=== PATIENT | female | born 1965 | race Caucasian/White ===

== ENCOUNTER 2023-06-01 14:05 | Inpatient (IN) ==
[2023-06-01 15:31] LABS: Basophils # (auto) 0.05 K/uL (0.00-0.20); Basophils % (auto) 0.7 %; Eosinophils # (auto) 0.21 K/uL (0.00-0.50); Eosinophils % (auto) 2.8 %; Hematocrit (blood only) 36.1 % (37.0-47.0); Hemoglobin 12.8 g/dl (12.0-16.0); Immature Granulocytes # (auto) 0.06 K/uL (0.01-0.20); Immature Granulocytes % (auto) 0.8 %; Lymphocytes # (auto) 1.91 K/uL (1.20-3.40); Lymphocytes % (auto) 25.2 %; Mean Corpuscular Hemoglobin 30.1 pg (25.0-34.0); Mean Corpuscular Hgb Conc 35.5 g/dL (32.0-36.0); Mean Corpuscular Volume 84.9 fL (80.0-100.0); Mean Platelet Volume 9.8 fL (9.4-12.4); Monocytes # (auto) 0.47 K/uL (0.11-0.59); Monocytes % (auto) 6.2 %; Neutrophils # (auto) 4.88 K/uL (1.40-6.50); Neutrophils % (auto) 64.3 %; Platelet Count 310 K/uL (130-400); RDW Coefficient of Variation 13.6 % (11.5-14.5); RDW Standard Deviation 42.1 fL (36.4-46.3); Red Blood Count 4.25 M/uL (4.20-5.40); White Blood Count 7.58 K/ul (4.8-10.8)
[2023-06-01 15:47] LABS: Acetaminophen < 3 ug/ml (10-30); Salicylate < 3.0 mg/dl (3.0-30)
[2023-06-01 15:52] LABS: Albumin Globulin Ratio 1.3 (0.9-2); Albumin Level 4.2 gm/dl (3.4-5.0); BUN Creatinine Ratio 12.5 (10-20); Bilirubin,Total 0.6 mg/dl (0.2-1.0); Calcium 9.3 mg/dl (8.6-10.3); Creatinine Clr Calc Pharmacy 72.1 ml/min; Est GFR (African American) 93.5 ml/min; Est GFR (Non-African American) 80.7 ml/min; Globulin 3.3 gm/dl (2.5-4.0); Potassium 3.6 mmol/L (3.5-5.1); Total Protein 7.5 gm/dl (6.0-8.3)
--- NOTE | 2023-06-01 16:01 | Emergency Department Note ---
Impression & Plan Mood disorder ED Provider Note ED Provider Note NAME: MEGAN HIGHTOWER AGE:58 SEX: Female : 1965 ARRIVES VIA: Private vehicle INFORMANT: Patient ED PROVIDER(s): Mila Marcelo DO CHIEF COMPLAINT: Mental health evaluation HPI: This is a 58-year-old female presents emergency room for mental health evaluation. Patient states she got in an argument with a friend of hers last night and since then has had thoughts of wanting to hurt this other person. She denies any suicidal ideation or thoughts of self-harm. Patient states she does take many medications, and her sleeping medication was recently changed. PAST MEDICAL HISTORY:See Below PAST SURGICAL HISTORY:See Below FAMILY HISTORY:See Below SOCIAL HISTORY:See Below HOME MEDICATIONS:See Below ALLERGIES:See Below VITALS:See Below PHYSICAL EXAMINATION: GENERAL: alert, well appearing, well nourished, no distress, non-toxic EYE EXAM: normal conjunctiva, PERRL and EOM's grossly intact OROPHARYNX: no exudate, no erythema, lips, buccal mucosa, and tongue normal and mucous membranes are moist NECK: supple, no nuchal rigidity, no adenopathy, non-tender LUNGS: Clear to auscultation. Normal chest wall mechanics, no w/r/r HEART: no murmurs, S1 normal and S2 normal ABDOMEN: abdomen soft, non-tender, normo-active bowel sounds, no masses, no rebound or guarding. BACK: Back is symmetrical on inspection and there is no deformity, no midline tenderness, no CVA tenderness. SKIN: no rashes, petechiae, orbruising UPPER EXTREMITIES: upper extremities are grossly normal. FROM, nml pulses b/l. Full range of motion of the right elbow although patient states she has pain just distal to the medial epicondyle. No evidence of trauma. LOWER EXTREMITIES: No pitting edema. FROM, nml pulses b/l. NEURO EXAM: Normal sensorium, cranial nerves II-XII grossly intact, normal speech, no facial droop,nogross weakness of arms, no gross weakness of legs. Gross sensation intact. No ataxia. Vital Signs: reviewed and remarkable Differential Diagnosis: Anxiety, depression, mood disorder, infection, hypoglycemia, electrolyte abnormalities, substance abuse, medication ADR, as well as others. MEDICAL DECISION MAKING: This is a 58-year-old female presents emergency department for mental health evaluation. Patient admits to thoughts of wanting to hurt her friend whom she had an argument with. Patient seen and evaluated medically cleared and then evaluated by case management. She was referred to [facility] for inpatient mental health treatment and was declined. She was then referred to [facility] which is pending at time of signout to the overnight doc. Patient calm and cooperative, vital signs stable. Consultation(s): [] ER Treatment Provided: See below 0015: Referral still pending, declined by [facility]. Case signed out to Dr. Vidal overnight Diagnostics Interpreted By Me: -ECG: [] -Cardiac Monitoring: An order was placed for continuous cardiac monitoring. The monitor shows a rate of [] with [] rhythm. -Laboratory studies: As stated above and show below. -Imaging studies: [] Triage Nursing Note Reviewed Prior/Outside Records Reviewed Past Med/Surg History Medical History Anxiety and depression Arthritis Asthma (03/14/13) last used rescue inhaler>been a while Bipolar 2 disorder Diabetes mellitus type 2 in obese Gastroparesis pt denies GERD (gastroesophageal reflux disease) History of kidney stones Hyperlipidemia Hypertension Mood disorder Sclerosing mesenteritis Stroke mini stroke >10 years ago *denies any current problems from event Surgical History History of anesthesia reaction slow to wake up History of colonoscopy History of esophagogastroduodenoscopy (EGD) History of lumbar fusion History of tooth extraction History of total knee replacement right Hx of cholecystectomy (03/14/13) Hx of hysterectomy (03/14/13) Hx of tonsillectomy Family History Father Diabetes Heart disease Cancer Mother Diabetes Sister Bone cancer Lung disease Brother Diabetes Cancer Other No family history of adverse response to anesthesia Social History Smoking Status: Former smoker Tobacco Type: Cigarettes Age Quit Using Tobacco: 52; Second Hand Exposure: No; Hx Alcohol Use: No Preferred Language: Cypriot 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: No Beliefs That Will Affect Care: None Current Living Situation: Spouse Feels Safe at Home: Yes Gender Identity: Female Assistive Devices: Glasses Allergies Allergies Allergy/AdvReac Type Severity Reaction Status Date / Time ibuprofen Allergy Severe slurrs Verified 04/07/23 07:31 speech iodine Allergy Severe "takes my Verified 04/07/23 07:31 breath away" NSAIDS (Non-Steroidal Allergy Severe slurred Verified 04/07/23 07:31 Anti-Inflamma speech acetaminophen [From Vicodin] Allergy Intermediate "too Verified 04/07/23 07:31 strong for me" hydrocodone Allergy Intermediate PT STATES Verified 04/07/23 07:31 MED IS "TOO STRONG FOR HER" olanzapine Allergy Unknown pt does Verified 04/07/23 07:31 not know Home Meds Home Medications Medication Instructions Recorded Confirmed aspirin 81 mg tablet,delayed 81 mg PO QAM 04/09/20 06/01/23 release (Aspir-) atorvastatin 40 mg tablet (Lipitor) 40 mg PO HS 04/09/20 06/01/23 pantoprazole 40 mg tablet,delayed 40 mg PO BID 04/09/20 06/01/23 release (Protonix) albuterol sulfate 90 mcg/actuation 1 puff inhalation Q4 PRN Wheezing 03/05/23 06/01/23 aerosol inhaler buspirone 10 mg tablet 20 mg PO BID 03/05/23 06/01/23 cyclobenzaprine 10 mg tablet 10 mg PO TID PRN Spasms 03/05/23 06/01/23 diclofenac sodium 1 % topical gel 2 g topical QID PRN Pain 03/05/23 06/01/23 (Arthritis Pain (diclofenac)) duloxetine 30 mg capsule,delayed 30 mg PO DAILY 03/05/23 06/01/23 release (Cymbalta) famotidine 20 mg tablet (Pepcid) 20 mg PO DAILY 03/05/23 06/01/23 gabapentin 100 mg capsule 300 mg PO TID 03/05/23 06/01/23 (Neurontin) hydroxyzine HCl 25 mg tablet 25 mg PO UD PRN Anxiety 03/05/23 06/01/23 ipratropium 20 mcg-albuterol 100 1 puff inhalation QID PRN sob 03/05/23 06/01/23 mcg/actuation mist for inhalation (Combivent Respimat) isosorbide mononitrate 30 mg 30 mg PO QAM 03/05/23 06/01/23 tablet,extended release 24 hr loperamide 2 mg tablet (Imodium 2 mg PO Q6H PRN Diarrhea 03/05/23 06/01/23 A-D) magnesium oxide 400 mg (241.3 mg 400 mg PO DAILY 03/05/23 06/01/23 magnesium) tablet (MagOx) mecobalamin (vitamin B12) 1,000 2,000 mcg PO QAM 03/05/23 06/01/23 mcg chewable tablet (B12 Active) metformin 500 mg tablet 500 mg PO BID 03/05/23 06/01/23 metoprolol succinate 25 mg 25 mg PO QAM 03/05/23 06/01/23 tablet,extended release 24 hr (Toprol XL) nitroglycerin 0.4 mg sublingual 0.4 mg sublingual Q5M PRN cp 03/05/23 06/01/23 tablet (Nitrostat) potassium chloride 10 mEq 10 meq PO QAM 03/05/23 06/01/23 tablet,extended release(part/cryst) (Klor-Con M) sucralfate 100 mg/mL oral 10 ml PO QID 03/05/23 06/01/23 suspension (Carafate) duloxetine 60 mg capsule,delayed 60 mg PO DAILY 03/23/23 06/01/23 release (Cymbalta) olanzapine 5 mg tablet (Zyprexa) 5 mg PO DAILY 03/23/23 06/01/23 acetaminophen 300 mg-codeine 60 mg 300 tab PO Q6H 06/01/23 06/01/23 tablet celecoxib 100 mg PO BID 06/01/23 06/01/23 ondansetron HCl 4 mg tablet 4 mg PO DAILY 06/01/23 06/01/23 Results & Data (ED) Vital Signs Vital Signs - 24 hr 06/01/23 14:08 06/01/23 16:28 Temperature 36.0 C L Temperature Source Temporal Artery Scan Pulse Rate 104 H Pulse Rate [Right Finger] 78 Respiratory Rate 20 20 Respiratory Effort / Characteristics Non-Labored Respiratory Depth Normal Blood Pressure 159/90 H Blood Pressure [Right Arm] 149/81 H Blood Pressure Mean 113 Blood Pressure Mean [Right Arm] 103 Pulse Oximetry 97 98 Oxygen Delivery Method Room Air Room Air Sepsis Recent Fever Within 48 Hours No Sepsis New/Unexplained Change in Mental Status N/A Sepsis Action Taken by Nursing No Action Required Laboratory Data 06/01/23 14:50 06/01/23 14:50 Lab Results 06/01/23 06/01/23 06/01/23 Range/Units 14:50 14:50 14:50 WBC 7.58 (4.8-10.8) K/ul RBC 4.25 (4.20-5.40) M/uL Hgb 12.8 (12.0-16.0) g/dl Hct 36.1 L (37.0-47.0) % MCV 84.9 (80.0-100.0) fL MCH 30.1 (25.0-34.0) pg MCHC 35.5 (32.0-36.0) g/dL RDW Std Deviation 42.1 (36.4-46.3) fL RDW Coeff of Maria De Jesus 13.6 (11.5-14.5) % Plt Count 310 (130-400) K/uL MPV 9.8 (9.4-12.4) fL Immature Gran % (Auto) 0.8 % Neut % (Auto) 64.3 % Lymph % (Auto) 25.2 % Bourbon % (Auto) 6.2 % Eos % (Auto) 2.8 % Baso % (Auto) 0.7 % Neut # (Auto) 4.88 (1.40-6.50) K/uL Lymph # (Auto) 1.91 (1.20-3.40) K/uL Bourbon # (Auto) 0.47 (0.11-0.59) K/uL Eos # (Auto) 0.21 (0.00-0.50) K/uL Baso # (Auto) 0.05 (0.00-0.20) K/uL Immature Gran # (Auto) 0.06 (0.01-0.20) K/uL Sodium 140 (136-145) mmol/L Potassium 3.6 (3.5-5.1) mmol/L Chloride 106 (98-107) mmol/L Carbon Dioxide 24 (21-32) mmol/L Anion Gap 10 (3-11) BUN 10 (6-23) mg/dl Creatinine 0.80 (0.6-1.2) mg/dl Est Cr Clr Drug Dosing 72.1 ml/min Est GFR ( Amer) 93.5 ml/min Est GFR (Non-Af Amer) 80.7 ml/min BUN/Creatinine Ratio 12.5 (10-20) Glucose 128 H (70-99(Fasting)) mg/dl Calcium 9.3 (8.6-10.3) mg/dl Total Bilirubin 0.6 (0.2-1.0) mg/dl AST 20 (13-39) U/L ALT 17 (7-52) U/L Alkaline Phosphatase 95 (34-104) U/L Total Protein 7.5 (6.0-8.3) gm/dl Albumin 4.2 (3.4-5.0) gm/dl Globulin 3.3 (2.5-4.0) gm/dl Albumin/Globulin Ratio 1.3 (0.9-2) TSH 1.567 (0.300-4.500) uIu/ml Urine Color Urine Appearance (Clear) Urine pH (4.5-7.5) Ur Specific Romeo (1.000-1.030) Urine Protein (Negative) Urine Glucose (UA) (Negative) Urine Ketones (Negative) Urine Blood (Negative) Urine Nitrite (Negative) Urine Bilirubin (Negative) Urine Urobilinogen (Negative) Ur Leukocyte Esterase (Negative) Urine WBC (Auto) (0-5) /hpf Urine RBC (Auto) (0-4) /hpf U Hyaline Cast (Auto) U Epithel Cells (Auto) (0-5) /lpf Urine Bacteria (Auto) (Negative) Salicylates (3.0-30) mg/dl Urine Opiates Screen (Neg) Ur Methadone, Qual (Neg) Acetaminophen (10-30) ug/ml Urine Barbiturates (Neg) Ur Phencyclidine (PCP) (Neg) U Amphetamin/Meth Scrn (Neg) MDMA (Ecstasy) Screen (Neg) U Benzodiazepines Scrn (Neg) Ur Cocaine Metabolite (Neg) U Marijuana (THC) Screen (Neg) Ethyl Alcohol mg/dL (<10.0) mg/dl SARS-CoV-2, RNA, NAAT (NEGATIVE) 06/01/23 06/01/23 06/01/23 Range/Units 14:50 14:50 15:06 WBC (4.8-10.8) K/ul RBC (4.20-5.40) M/uL Hgb (12.0-16.0) g/dl Hct (37.0-47.0) % MCV (80.0-100.0) fL MCH (25.0-34.0) pg MCHC (32.0-36.0) g/dL RDW Std Deviation (36.4-46.3) fL RDW Coeff of Maria De Jesus (11.5-14.5) % Plt Count (130-400) K/uL MPV (9.4-12.4) fL Immature Gran % (Auto) % Neut % (Auto) % Lymph % (Auto) % Bourbon % (Auto) % Eos % (Auto) % Baso % (Auto) % Neut # (Auto) (1.40-6.50) K/uL Lymph # (Auto) (1.20-3.40) K/uL Bourbon # (Auto) (0.11-0.59) K/uL Eos # (Auto) (0.00-0.50) K/uL Baso # (Auto) (0.00-0.20) K/uL Immature Gran # (Auto) (0.01-0.20) K/uL Sodium (136-145) mmol/L Potassium (3.5-5.1) mmol/L Chloride (98-107) mmol/L Carbon Dioxide (21-32) mmol/L Anion Gap (3-11) BUN (6-23) mg/dl Creatinine (0.6-1.2) mg/dl Est Cr Clr Drug Dosing ml/min Est GFR ( Amer) ml/min Est GFR (Non-Af Amer) ml/min BUN/Creatinine Ratio (10-20) Glucose (70-99(Fasting)) mg/dl Calcium (8.6-10.3) mg/dl Total Bilirubin (0.2-1.0) mg/dl AST (13-39) U/L ALT (7-52) U/L Alkaline Phosphatase (34-104) U/L Total Protein (6.0-8.3) gm/dl Albumin (3.4-5.0) gm/dl Globulin (2.5-4.0) gm/dl Albumin/Globulin Ratio (0.9-2) TSH (0.300-4.500) uIu/ml Urine Color Urine Appearance (Clear) Urine pH (4.5-7.5) Ur Specific Romeo (1.000-1.030) Urine Protein (Negative) Urine Glucose (UA) (Negative) Urine Ketones (Negative) Urine Blood (Negative) Urine Nitrite (Negative) Urine Bilirubin (Negative) Urine Urobilinogen (Negative) Ur Leukocyte Esterase (Negative) Urine WBC (Auto) (0-5) /hpf Urine RBC (Auto) (0-4) /hpf U Hyaline Cast (Auto) U Epithel Cells (Auto) (0-5) /lpf Urine Bacteria (Auto) (Negative) Salicylates < 3.0 L (3.0-30) mg/dl Urine Opiates Screen (Neg) Ur Methadone, Qual (Neg) Acetaminophen < 3 L (10-30) ug/ml Urine Barbiturates (Neg) Ur Phencyclidine (PCP) (Neg) U Amphetamin/Meth Scrn (Neg) MDMA (Ecstasy) Screen (Neg) U Benzodiazepines Scrn (Neg) Ur Cocaine Metabolite (Neg) U Marijuana (THC) Screen (Neg) Ethyl Alcohol mg/dL < 10.0 (<10.0) mg/dl SARS-CoV-2, RNA, NAAT NEGATIVE (NEGATIVE) 06/01/23 06/01/23 Range/Units 16:30 16:30 WBC (4.8-10.8) K/ul RBC (4.20-5.40) M/uL Hgb (12.0-16.0) g/dl Hct (37.0-47.0) % MCV (80.0-100.0) fL MCH (25.0-34.0) pg MCHC (32.0-36.0) g/dL RDW Std Deviation (36.4-46.3) fL RDW Coeff of Maria De Jesus (11.5-14.5) % Plt Count (130-400) K/uL MPV (9.4-12.4) fL Immature Gran % (Auto) % Neut % (Auto) % Lymph % (Auto) % Bourbon % (Auto) % Eos % (Auto) % Baso % (Auto) % Neut # (Auto) (1.40-6.50) K/uL Lymph # (Auto) (1.20-3.40) K/uL Bourbon # (Auto) (0.11-0.59) K/uL Eos # (Auto) (0.00-0.50) K/uL Baso # (Auto) (0.00-0.20) K/uL Immature Gran # (Auto) (0.01-0.20) K/uL Sodium (136-145) mmol/L Potassium (3.5-5.1) mmol/L Chloride (98-107) mmol/L Carbon Dioxide (21-32) mmol/L Anion Gap (3-11) BUN (6-23) mg/dl Creatinine (0.6-1.2) mg/dl Est Cr Clr Drug Dosing ml/min Est GFR ( Amer) ml/min Est GFR (Non-Af Amer) ml/min BUN/Creatinine Ratio (10-20) Glucose (70-99(Fasting)) mg/dl Calcium (8.6-10.3) mg/dl Total Bilirubin (0.2-1.0) mg/dl AST (13-39) U/L ALT (7-52) U/L Alkaline Phosphatase (34-104) U/L Total Protein (6.0-8.3) gm/dl Albumin (3.4-5.0) gm/dl Globulin (2.5-4.0) gm/dl Albumin/Globulin Ratio (0.9-2) TSH (0.300-4.500) uIu/ml Urine Color Yellow Urine Appearance Clear (Clear) Urine pH 5.5 (4.5-7.5) Ur Specific Romeo 1.016 (1.000-1.030) Urine Protein Negative (Negative) Urine Glucose (UA) Negative (Negative) Urine Ketones Negative (Negative) Urine Blood Trace H (Negative) Urine Nitrite Negative (Negative) Urine Bilirubin Negative (Negative) Urine Urobilinogen Negative (Negative) Ur Leukocyte Esterase 1+ H (Negative) Urine WBC (Auto) 5-10 H (0-5) /hpf Urine RBC (Auto) 0-4 (0-4) /hpf U Hyaline Cast (Auto) Not Reportable U Epithel Cells (Auto) 5-10 H (0-5) /lpf Urine Bacteria (Auto) Negative (Negative) Salicylates (3.0-30) mg/dl Urine Opiates Screen Neg (Neg) Ur Methadone, Qual Neg (Neg) Acetaminophen (10-30) ug/ml Urine Barbiturates Neg (Neg) Ur Phencyclidine (PCP) Neg (Neg) U Amphetamin/Meth Scrn Neg (Neg) MDMA (Ecstasy) Screen Neg (Neg) U Benzodiazepines Scrn Neg (Neg) Ur Cocaine Metabolite Neg (Neg) U Marijuana (THC) Screen Neg (Neg) Ethyl Alcohol mg/dL (<10.0) mg/dl SARS-CoV-2, RNA, NAAT (NEGATIVE) Administered Medications Discontinued Medications Ondansetron HCl (Ondansetron 4 Mg Od Tab) 4 mg PO NOW STA Stop: 06/01/23 20:11 Last Admin: 06/01/23 20:16 Dose: 4 mg Documented By: KARAN Imaging Data Radiologist's Impression: Elbow X-Ray 06/01/23 16:19 XR elbow RT min 3V routine HISTORY: 58 years-old Female pain . Acute right elbow pain without reported trauma COMPARISON: None TECHNIQUE: 3 views of the right elbow FINDINGS: No acute fracture, dislocation, significant osteoarthritis or large joint effusion. IMPRESSION: No acute fracture or dislocation. ACT 112: Negative or not required by law. The above report was generated using voice recognition software. It may contain grammatical, syntax or spelling errors. Electronically signed by: Jai Raines M.D. 06/01/2023 5:27 PM Discharge Plan Visit Data Chief Complaint: Mental Health Evaluation Stated Complaint: FEELING OF WANTING TO HURT HERSELF ED Provider: Mila Marcelo Discharge Problem: Mood disorder Forms Stand Alone Forms: [facility], Suicide Prevention Resources Prescriptions Prescriptions: No Action sucralfate [Carafate] 100 mg/mL suspension 10 ml PO QID Rx Instructions: swish in mouth and swallow; use after food/drink mecobalamin (vitamin B12) [B12 Active] 1,000 mcg tablet,chewable 2,000 mcg PO QAM loperamide [Imodium A-D] 2 mg tablet 2 mg PO Q6H PRN (Reason: Diarrhea) isosorbide mononitrate 30 mg tablet extended release 24 hr 30 mg PO QAM cyclobenzaprine 10 mg tablet 10 mg PO TID PRN (Reason: Spasms) metoprolol succinate [Toprol XL] 25 mg tablet extended release 24 hr 25 mg PO QAM diclofenac sodium [Arthritis Pain (diclofenac)] 1 % gel 2 g topical QID PRN (Reason: Pain) Rx Instructions: apply to single elbow, wrist or hand; for hand includes palm/fingers/back of hand nitroglycerin [Nitrostat] 0.4 mg tablet, sublingual 0.4 mg sublingual Q5M PRN (Reason: cp) Rx Instructions: do not exceed 3 doses per episode albuterol sulfate 90 mcg/actuation HFA aerosol inhaler 1 puff inhalation Q4 PRN (Reason: Wheezing) buspirone 10 mg tablet 20 mg PO BID Combivent Respimat 20-100 mcg/actuation mist 1 puff inhalation QID PRN (Reason: sob) Rx Instructions: space evenly during waking hours duloxetine [Cymbalta] 30 mg capsule,delayed release(DR/EC) 30 mg PO DAILY Patient Comments: currently on hold d/t stomach problems famotidine [Pepcid] 20 mg tablet 20 mg PO DAILY Patient Comments: currently on hold d/t stomach problems hydroxyzine HCl 25 mg tablet 25 mg PO UD PRN (Reason: Anxiety) gabapentin [Neurontin] 100 mg capsule 300 mg PO TID potassium chloride [Klor-Con M10] 10 mEq tablet,ER particles/crystals 10 meq PO QAM magnesium oxide [MagOx] 400 mg (241.3 mg magnesium) tablet 400 mg PO DAILY metformin 500 mg tablet 500 mg PO BID Patient Comments: currently on hold d/t stomach problems duloxetine [Cymbalta] 60 mg capsule,delayed release(DR/EC) 60 mg PO DAILY olanzapine [Zyprexa] 5 mg tablet 5 mg PO DAILY atorvastatin [Lipitor] 40 mg Tablet 40 mg PO HS Patient Comments: currently hold d/t stomach problems aspirin [Aspir-81] 81 mg Tablet,Delayed Release (Dr/Ec) 81 mg PO QAM pantoprazole [Protonix] 40 mg Tablet,Delayed Release (Dr/Ec) 40 mg PO BID ondansetron HCl 4 mg tablet 4 mg PO DAILY acetaminophen-codeine 300-60 mg tablet 300 tab PO Q6H celecoxib 100 mg capsule 100 mg PO BID Referrals Referrals: PCP,NO [Primary Care Provider] -
[2023-06-01 16:47] LABS: Appearance Urine Clear (Clear); Bilirubin Urine Negative (Negative); Blood Urine Trace (Negative); Color Urine Yellow; Glucose Urine UA Negative (Negative); Ketones Urine Negative (Negative); Leukocyte Esterase Urine 1+ (Negative); Nitrite Urine Negative (Negative); Protein Urine Negative (Negative); Specific Gravity Urine 1.016 (1.000-1.030); Urobilinogen Urine Negative (Negative); pH Urine 5.5 (4.5-7.5)
[2023-06-01 17:19] LABS: Bacteria Urine Automated Negative (Negative); RBC Urine Automated 0-4 /hpf (0-4)
--- NOTE | 2023-06-01 17:28 | XRay Report ---
XR elbow RT min 3V routine HISTORY: 58 years-old Female pain . Acute right elbow pain without reported trauma COMPARISON: None TECHNIQUE: 3 views of the right elbow FINDINGS: No acute fracture, dislocation, significant osteoarthritis or large joint effusion. IMPRESSION: No acute fracture or dislocation. ACT 112: Negative or not required by law. The above report was generated using voice recognition software. It may contain grammatical, syntax o r spelling errors. Electronically signed by: Jai Raines M.D. 06/01/2023 5:27 PM
[2023-06-01 17:39] LABS: Amphetamines+Metham, Urine Neg (Neg); Barbiturates, Urine Neg (Neg); Benzodiazepine, Urine Neg (Neg); Cocaine, Urine Neg (Neg); MDMA (Ecstacy), Urine Neg (Neg); Methadone, Urine Neg (Neg); Opiate, Urine Neg (Neg); Phencyclidine, Urine Neg (Neg)
[2023-06-01] MEDS ORDERED: ONDANSETRON 4 MG OD TAB PO STA (20:10)
[2023-06-02] MEDS ORDERED: CYCLOBENZAPRINE HCL 10 MG TAB PO PRN ×2 (00:15→13:22)
[2023-06-02] MEDS ORDERED: hydrOXYzine HCl 25 MG TAB PO PRN ×4 (00:15→03:24)
[2023-06-02] MEDS ORDERED: busPIRone 5 MG TAB PO SCH (00:15)
[2023-06-02] MEDS ORDERED: CELECOXIB 100 MG PO SCH (00:15)
[2023-06-02] MEDS ORDERED: IPRATROPIUM BROMIDE/ALBUTEROL respimat INH INH PRN (00:15)
[2023-06-02] MEDS ORDERED: ALBUTEROL HFA 8 GM INHALER INH PRN (00:15)
[2023-06-02] MEDS ORDERED: DICLOFENAC SOD 1% GEL 100 GM TUBE EXT PRN (00:15)
[2023-06-02] MEDS ORDERED: PANTOprazole 40 MG TAB PO SCH (00:30)
[2023-06-02] MEDS ORDERED: CELECOXIB 100 MG CAP PO SCH (00:30)
[2023-06-02] MEDS ORDERED: metFORMIN HCL 500 MG TAB PO SCH (00:30)
--- NOTE | 2023-06-02 02:19 | Emergency Department Note ---
ED Visit Note Date and Time: 06/02/2023 0010 Interval History: Sign out received from Dr. Marcelo who reviewed details of the encounter. Patient was pending bed placement. Summary: Patient was excepted as a 201 to 3 S. .
[2023-06-02] MEDS ORDERED: ACETAMINOPHEN 325 MG TAB PO PRN (03:24)
[2023-06-02] MEDS ORDERED: ALUMINUM/MAGNESIUM SUSP 30 ML UDC PO PRN (03:24)
[2023-06-02] MEDS ORDERED: MAGNESIUM HYDROXIDE SUSP 30 ML UDC PO PRN (03:24)
[2023-06-02] MEDS ORDERED: SODIUM CHLORIDE 0.65% NA SOLN 45 ML (OCEAN) PRN (03:24)
[2023-06-02] MEDS ORDERED: NITROGLYCERIN SL 0.4 MG/TAB TAB SL PRN (03:45)
[2023-06-02] MEDS: AMITRIPTYLINE HCL 25 MG TAB PO SCH ×2 (04:15→22:11)
[2023-06-02] MEDS ORDERED: SUCRALFATE 1 GM/10 ML UDC PO SCH (07:30)
--- NOTE | 2023-06-02 08:48 | Electrocardiogram Report ---
Test Reason : Blood Pressure : / mmHG Vent. Rate : 092 BPM Atrial Rate : 092 BPM P-R Int : 144 ms QRS Dur : 080 ms QT Int : 392 ms P-R-T Axes : 059 -19 005 degrees QTc Int : 484 ms Normal sinus rhythm Cannot rule out Inferior infarct , age undetermined Abnormal ECG When compared with ECG of 27-MAY-2023 05:55, No significant change was found Confirmed by Panfilo Hooper ([id number]) on 06/02/2023 8:48:13 AM Referred By: REFERRED SELF Confirmed By:Panfilo Hooper
[2023-06-02] MEDS ORDERED: METOPROLOL SUCC 25MG EXT REL TAB PO SCH (09:00)
[2023-06-02] MEDS ORDERED: DULoxetine HCL 30 MG CAP PO SCH (09:00)
[2023-06-02] MEDS ORDERED: ISOSORBIDE MONO EXTENDED REL 30 MG TABCR PO SCH (09:00)
[2023-06-02] MEDS ORDERED: POTASSIUM CHLORIDE 10 MEQ TABCR PO SCH (09:00)
[2023-06-02] MEDS ORDERED: FAMOTIDINE 20 MG TAB PO SCH (09:00)
[2023-06-02] MEDS ORDERED: GABAPENTIN 100 MG CAP PO SCH (09:00)
[2023-06-02] MEDS ORDERED: OLANZapine 5 MG TABLET PO SCH (09:00)
[2023-06-02] MEDS ORDERED: DULoxetine HCL 60 MG CAP PO SCH (09:00)
[2023-06-02] MEDS ORDERED: MAGNESIUM OXIDE 400 MG TAB PO SCH (09:00)
[2023-06-02] MEDS ORDERED: ASPIRIN 81 MG ECTAB PO SCH (09:00)
[2023-06-02] MEDS ORDERED: traMADol HCL 50 MG TABLET PO PRN (13:22)
[2023-06-02] MEDS: ONDANSETRON 4 MG OD TAB PO SCH (14:25)
[2023-06-02] MEDS: ISOSORBIDE MONO EXTENDED REL 30 MG TABCR PO SCH (14:27)
[2023-06-02] MEDS: GABAPENTIN 400 MG CAP PO SCH ×2 (14:27→21:38)
[2023-06-02] MEDS: MAGNESIUM OXIDE 400 MG TAB PO SCH (14:27)
[2023-06-02] MEDS: DULoxetine HCL 60 MG CAP PO SCH (14:28)
[2023-06-02] MEDS: FAMOTIDINE 20 MG TAB PO SCH (14:28)
[2023-06-02] MEDS: METOPROLOL SUCC 25MG EXT REL TAB PO SCH (14:28)
[2023-06-02] MEDS: ASPIRIN 81 MG ECTAB PO SCH (14:29)
[2023-06-02] MEDS: ATORVASTATIN 40 MG TAB PO SCH (14:29)
--- NOTE | 2023-06-02 15:28 | History & Physical ---
Date of Service June 02, 2023 Impression / Recommendations Impression 58 yo female with reported hx of bipolar II, recent saldana and SI, admit after concerned about her possible HI statements toward friend. will continue MNPR even though no HI current as significant fall risk/ambulates with walker (1) Bipolar 2 disorder: Plan The patient was admitted to the [facility] ([facility]) on q15 min checks (behavioral with suicide precautions) for safety. The patient will participate in group, recreational, and milieu therapies and will be offered additional individual and family sessions as clinically appropriate. Risks/benefits/alternative reviewed re: current medications, agreed to shift Buspar dosing for better coverage and continue titration of Neurontin to address pain and anxiety. Overall, I spent a total of 58 minutes with this case, including review of chart records, direct evaluation of the patient, counseling the patient, reconciling medication, coordination of care with nursing, risk assessment, and documentation in the electronic health record. Inventory Assets Strengths: sought treatment, aware of medication regimen Needs: improve coping skills, clarify intellectual level Suicide Risk Level Suicide Risk Level: Moderate (q15 min suicide checks) Risk Factors Assessment : Yes Do You Have Access To A Gun?: Yes Mental Health Diagnoses: Yes Substance Use Disorders: No Previous Attempt: Yes Previous Psychiatric Hospitalization: Yes Protective Factors Assessment Employed: No Supportive Family: Yes Psychiatric History Identifying Data MEGAN HIGHTOWER is a 58-year-old F who currently lives in [facility], has a history of bipolar II disorder, and was admitted on 06/02/23 01:54 on a 201 voluntary commitment for mood lability and argument with friend. Chief Complaint "I don't want to hurt anyone, that's why I came in." History of Present Illness Patient states she was last hospitazlied last May in [place], "fall is like this." States she felt more "up and down" meaning depressed 5/7 days over the last 3 weeks, associated at times with aud saldana, non specific "mumbling," denies saldana are command in nature. States she wants to spend more time with her but does have neighbor and her 3 wiener dogs as support but "not enough" yesterday when she argued with her friend over the cable bill. Her friends cable bill is in the patient's name and she didn't pay it. Patient now says she will just turn the cable off if needs to. Has been dealing with some chronic pain from chest/upper extremity spasm, possibly CAD, and is s/p knee replacement with ongoing pain, appears to have some foot drop/walks with walker here. Past Psychiatric History Current Psychiatric Diagnosis: Bipolar Outpatient Services: [facility] Previous Psych Admissions: Len, [facility], L[facility]ette, [facility] Do You Have Access To A Gun?: Yes History of Previous Suicide Attempt: Yes Past Medication Trials: will request records, patient finds current meds helpful, main issue is wear off of anxiety med in afternoon. Allergies Allergy/AdvReac Type Severity Reaction Status Date / Time ibuprofen Allergy Severe slurrs Verified 04/07/23 07:31 speech iodine Allergy Severe "takes my Verified 04/07/23 07:31 breath away" NSAIDS (Non-Steroidal Allergy Severe slurred Verified 04/07/23 07:31 Anti-Inflamma speech acetaminophen [From Vicodin] Allergy Intermediate "too Verified 04/07/23 07:31 strong for me" hydrocodone Allergy Intermediate PT STATES Verified 04/07/23 07:31 MED IS "TOO STRONG FOR HER" olanzapine Allergy Unknown pt does Verified 04/07/23 07:31 not know Home Medications Medication Instructions Recorded Confirmed Type aspirin 81 mg tablet,delayed 81 mg PO QAM 04/09/20 06/01/23 History release (Aspir-) atorvastatin 40 mg tablet (Lipitor) 40 mg PO HS 04/09/20 06/01/23 History pantoprazole 40 mg tablet,delayed 40 mg PO BID 04/09/20 06/01/23 History release (Protonix) albuterol sulfate 90 mcg/actuation 1 puff inhalation Q4 PRN Wheezing 03/05/23 06/01/23 History aerosol inhaler buspirone 10 mg tablet 20 mg PO BID 03/05/23 06/01/23 History cyclobenzaprine 10 mg tablet 10 mg PO TID PRN Spasms 03/05/23 06/01/23 History diclofenac sodium 1 % topical gel 2 g topical QID PRN Pain 03/05/23 06/01/23 History (Arthritis Pain (diclofenac)) duloxetine 30 mg capsule,delayed 30 mg PO DAILY 03/05/23 06/01/23 History release (Cymbalta) famotidine 20 mg tablet (Pepcid) 20 mg PO DAILY 03/05/23 06/01/23 History gabapentin 100 mg capsule 300 mg PO TID 03/05/23 06/01/23 History (Neurontin) hydroxyzine HCl 25 mg tablet 25 mg PO UD PRN Anxiety 03/05/23 06/01/23 History ipratropium 20 mcg-albuterol 100 1 puff inhalation QID PRN sob 03/05/23 06/01/23 History mcg/actuation mist for inhalation (Combivent Respimat) isosorbide mononitrate 30 mg 30 mg PO QAM 03/05/23 06/01/23 History tablet,extended release 24 hr loperamide 2 mg tablet (Imodium 2 mg PO Q6H PRN Diarrhea 03/05/23 06/01/23 History A-D) magnesium oxide 400 mg (241.3 mg 400 mg PO DAILY 03/05/23 06/01/23 History magnesium) tablet (MagOx) mecobalamin (vitamin B12) 1,000 2,000 mcg PO QAM 03/05/23 06/01/23 History mcg chewable tablet (B12 Active) metformin 500 mg tablet 500 mg PO BID 03/05/23 06/01/23 History metoprolol succinate 25 mg 25 mg PO QAM 03/05/23 06/01/23 History tablet,extended release 24 hr (Toprol XL) nitroglycerin 0.4 mg sublingual 0.4 mg sublingual Q5M PRN cp 03/05/23 06/01/23 History tablet (Nitrostat) potassium chloride 10 mEq 10 meq PO QAM 03/05/23 06/01/23 History tablet,extended release(part/cryst) (Klor-Con M) sucralfate 100 mg/mL oral 10 ml PO QID 03/05/23 06/01/23 History suspension (Carafate) duloxetine 60 mg capsule,delayed 60 mg PO DAILY 03/23/23 06/01/23 History release (Cymbalta) olanzapine 5 mg tablet (Zyprexa) 5 mg PO DAILY 03/23/23 06/01/23 History acetaminophen 300 mg-codeine 60 mg 300 tab PO Q6H 06/01/23 06/01/23 History tablet celecoxib 100 mg PO BID 06/01/23 06/01/23 History ondansetron HCl 4 mg tablet 4 mg PO DAILY 06/01/23 06/01/23 History amitriptyline 25 mg tablet 25 mg HS 06/02/23 06/02/23 History Family History Family History of: Doesn't Know Alcohol History Hx of Alcohol Use Over the Past 12 Months: No AUDIT Total Score: 0 Smoking Use Have You Smoked or Used Tobacco Products in the Last 30 Days: No Smoking Status: Former smoker Substance History Hx of Prescription Med Misuse Over the Past 12 Months: No Hx of Over the Counter Med Misuse Over the Past 12 Months: No Hx of Inhalent Misuse Over the Past 12 Months: No Hx of Organic Substance Use Over the Past 12 Months: No Hx of Illegal Substances/Street Drug Use Over Past 12 Months: No Problems as a Result of Past Substance Use: None Identified Personal History Living Arrangements: Home Highest Grade Completed: High School Graduate Employment Status: Disabled Marital Status: Beliefs That Will Affect Care: None Current Legal Problems: No Psychological Trauma History Comment: denied Patient History Medical History Anxiety and depression Arthritis Asthma (03/14/13) last used rescue inhaler>been a while Bipolar 2 disorder Diabetes mellitus type 2 in obese Gastroparesis pt denies GERD (gastroesophageal reflux disease) History of kidney stones Hyperlipidemia Hypertension Mood disorder Sclerosing mesenteritis Stroke mini stroke >10 years ago *denies any current problems from event Surgical History History of anesthesia reaction slow to wake up History of colonoscopy History of esophagogastroduodenoscopy (EGD) History of lumbar fusion History of tooth extraction History of total knee replacement right Hx of cholecystectomy (03/14/13) Hx of hysterectomy (03/14/13) Hx of tonsillectomy Family History Father Diabetes Heart disease Cancer Mother Diabetes Sister Bone cancer Lung disease Brother Diabetes Cancer Other No family history of adverse response to anesthesia Social History Smoking Status: Former smoker Tobacco Type: Cigarettes Age Quit Using Tobacco: 52; Second Hand Exposure: No; Hx Alcohol Use: No Preferred Language: Luxembourgish Communication Ability: Effective Loss Prevention Officer Required: No Beliefs That Will Affect Care: None Current Living Situation: Spouse Feels Safe at Home: Yes Gender Identity: Female Assistive Devices: Glasses Review of Systems Review of Systems: All systems reviewed & are unremarkable except as noted in HPI & below Physical Exam Psychiatric: Orientation: alert Apperance: appropriately dressed and appropriately groomed Eye Contact: + fair eye contact Motor Behavior: no abnormal motor movements Speech: normal rate/rhythm/volume of speech Affect: + constricted affect Mood: + anxious mood Thought Process: + concrete thought process Thought Content: reality based without delusions Suicidal Thoughts: denies suicidal thoughts Homicidal Thoughts: denies homicidal thoughts Hallucinations: no auditory hallucinations and no visual hallucinations Cognition: attention grossly intact and language grossly intact Estimated Intelligence: + below average estimated intelligence I nsight: + limited insight Judgment: + limited judgement Vital Signs (Past 24 Hours): Last Vital Signs Temp 36.6 C 06/02/23 03:55 Pulse 81 06/02/23 03:55 Resp 18 06/02/23 03:55 BP 114/71 06/02/23 03:55 Pulse Ox 98 06/02/23 03:55 O2 Del Method Room Air 06/02/23 03:55 Exam Statement: A physical exam was performed in the ED by [facility] for the purposes of medical clearance. I accept that physical as correct and adequate for the purposes of the inpatient physical exam. Results & Data ([facility]) Laboratory Results Laboratory Results - last 24 hr 06/01/23 06/01/23 06/01/23 14:50 14:50 14:50 WBC 7.58 RBC 4.25 Hgb 12.8 Hct 36.1 L MCV 84.9 MCH 30.1 MCHC 35.5 RDW Std Deviation 42.1 RDW Coeff of Maria De Jesus 13.6 Plt Count 310 MPV 9.8 Immature Gran % (Auto) 0.8 Neut % (Auto) 64.3 Lymph % (Auto) 25.2 [place] % (Auto) 6.2 Eos % (Auto) 2.8 Baso % (Auto) 0.7 Neut # (Auto) 4.88 Lymph # (Auto) 1.91 [place] # (Auto) 0.47 Eos # (Auto) 0.21 Baso # (Auto) 0.05 Immature Gran # (Auto) 0.06 Sodium 140 Potassium 3.6 Chloride 106 Carbon Dioxide 24 Anion Gap 10 BUN 10 Creatinine 0.80 Est Cr Clr Drug Dosing 72.1 Est GFR ( Amer) 93.5 Est GFR (Non-Af Amer) 80.7 BUN/Creatinine Ratio 12.5 Glucose 128 H POC Glucose Calcium 9.3 Total Bilirubin 0.6 AST 20 ALT 17 Alkaline Phosphatase 95 Total Protein 7.5 Albumin 4.2 Globulin 3.3 Albumin/Globulin Ratio 1.3 TSH 1.567 Urine Color Urine Appearance Urine pH Ur Specific [place] Urine Protein Urine Glucose (UA) Urine Ketones Urine Blood Urine Nitrite Urine Bilirubin Urine Urobilinogen Ur Leukocyte Esterase Urine WBC (Auto) Urine RBC (Auto) U Hyaline Cast (Auto) U Epithel Cells (Auto) Urine Bacteria (Auto) Salicylates Urine Opiates Screen Ur Methadone, Qual Acetaminophen Urine Barbiturates Ur Phencyclidine (PCP) U Amphetamin/Meth Scrn MDMA (Ecstasy) Screen U Benzodiazepines Scrn Ur Cocaine Metabolite U Marijuana (THC) Screen Ethyl Alcohol mg/dL SARS-CoV-2, RNA, NAAT 06/01/23 06/01/23 06/01/23 14:50 14:50 15:06 WBC RBC Hgb Hct MCV MCH MCHC RDW Std Deviation RDW Coeff of Maria De Jesus Plt Count MPV Immature Gran % (Auto) Neut % (Auto) Lymph % (Auto) [place] % (Auto) Eos % (Auto) Baso % (Auto) Neut # (Auto) Lymph # (Auto) [place] # (Auto) Eos # (Auto) Baso # (Auto) Immature Gran # (Auto) Sodium Potassium Chloride Carbon Dioxide Anion Gap BUN Creatinine Est Cr Clr Drug Dosing Est GFR ( Amer) Est GFR (Non-Af Amer) BUN/Creatinine Ratio Glucose POC Glucose Calcium Total Bilirubin AST ALT Alkaline Phosphatase Total Protein Albumin Globulin Albumin/Globulin Ratio TSH Urine Color Urine Appearance Urine pH Ur Specific [place] Urine Protein Urine Glucose (UA) Urine Ketones Urine Blood Urine Nitrite Urine Bilirubin Urine Urobilinogen Ur Leukocyte Esterase Urine WBC (Auto) Urine RBC (Auto) U Hyaline Cast (Auto) U Epithel Cells (Auto) Urine Bacteria (Auto) Salicylates < 3.0 L Urine Opiates Screen Ur Methadone, Qual Acetaminophen < 3 L Urine Barbiturates Ur Phencyclidine (PCP) U Amphetamin/Meth Scrn MDMA (Ecstasy) Screen U Benzodiazepines Scrn Ur Cocaine Metabolite U Marijuana (THC) Screen Ethyl Alcohol mg/dL < 10.0 SARS-CoV-2, RNA, NAAT NEGATIVE 06/01/23 06/01/23 06/02/23 16:30 16:30 13:00 WBC RBC Hgb Hct MCV MCH MCHC RDW Std Deviation RDW Coeff of Maria De Jesus Plt Count MPV Immature Gran % (Auto) Neut % (Auto) Lymph % (Auto) [place] % (Auto) Eos % (Auto) Baso % (Auto) Neut # (Auto) Lymph # (Auto) [place] # (Auto) Eos # (Auto) Baso # (Auto) Immature Gran # (Auto) Sodium Potassium Chloride Carbon Dioxide Anion Gap BUN Creatinine Est Cr Clr Drug Dosing Est GFR ( Amer) Est GFR (Non-Af Amer) BUN/Creatinine Ratio Glucose POC Glucose 93 Calcium Total Bilirubin AST ALT Alkaline Phosphatase Total Protein Albumin Globulin Albumin/Globulin Ratio TSH Urine Color Yellow Urine Appearance Clear Urine pH 5.5 Ur Specific [place] 1.016 Urine Protein Negative Urine Glucose (UA) Negative Urine Ketones Negative Urine Blood Trace H Urine Nitrite Negative Urine Bilirubin Negative Urine Urobilinogen Negative Ur Leukocyte Esterase 1+ H Urine WBC (Auto) 5-10 H Urine RBC (Auto) 0-4 U Hyaline Cast (Auto) Not Reportable U Epithel Cells (Auto) 5-10 H Urine Bacteria (Auto) Negative Salicylates Urine Opiates Screen Neg Ur Methadone, Qual Neg Acetaminophen Urine Barbiturates Neg Ur Phencyclidine (PCP) Neg U Amphetamin/Meth Scrn Neg MDMA (Ecstasy) Screen Neg U Benzodiazepines Scrn Neg Ur Cocaine Metabolite Neg U Marijuana (THC) Screen Neg Ethyl Alcohol mg/dL SARS-CoV-2, RNA, NAAT Diagnostic Findings given combo with tCA for sleep, EKG obtained in ED and [id number] Current Inpatient Medications Current Inpatient Medications: Current Inpatient Medications Acetaminophen (Acetaminophen 325 Mg Tab) 650 mg PO Q4H PRN PRN Reason: Headache or Minor Fever Stop: 07/02/23 03:23 Al Hydrox/Mg Hydrox/Simethicone (Aluminum/Magnesium Susp 30 Ml Udc) 30 ml PO Q4H PRN PRN Reason: GI Upset Stop: 07/02/23 03:23 Last Admin: 06/02/23 04:15 Dose: 30 ml Amitriptyline HCl (Amitriptyline Hcl 25 Mg Tab) 25 mg PO HS QUANG Stop: 07/02/23 03:49 Last Admin: 06/02/23 04:15 Dose: 25 mg Aspirin (Aspirin 81 Mg Ectab) [facility] Stop: 07/02/23 13:29 Last Admin: 06/02/23 14:29 Dose: 81 mg Atorvastatin Calcium (Atorvastatin 40 Mg Tab) 40 mg PO QAM [facility] Stop: 07/02/23 13:29 Last Admin: 06/02/23 14:29 Dose: 40 mg Buspirone HCl (Buspirone 5 Mg Tab) 20 mg PO BIDM [facility] Stop: 07/02/23 17:44 Celecoxib (Celecoxib 100 Mg Cap) 100 mg PO BID [facility] Stop: 07/02/23 20:59 Cyclobenzaprine HCl (Cyclobenzaprine Hcl 10 Mg Tab) 10 mg PO TID PRN PRN Reason: Muscle Spasm Stop: 07/02/23 13:59 Diclofenac Sodium (Diclofenac Sod 1% Gel 100 Gm Tube) 2 gm EXT QID [facility]; Protocol Stop: 07/02/23 16:59 Duloxetine HCl (Duloxetine Hcl 60 Mg Cap) 60 mg [facility] Stop: 07/02/23 13:29 Last Admin: 06/02/23 14:28 Dose: 60 mg Duloxetine HCl (Duloxetine Hcl 30 Mg Cap) 30 mg PO DAILYBD [facility] Stop: 07/02/23 17:14 Famotidine (Famotidine 20 Mg Tab) 20 mg PO [facility]AC[facility] Stop: 07/02/23 13:29 Last Admin: 06/02/23 14:28 Dose: 20 mg Gabapentin (Gabapentin 400 Mg Cap) 400 mg PO TID [facility] Stop: 07/02/23 13:59 Last Admin: 06/02/23 14:27 Dose: 400 mg Hydroxyzine HCl (Hydroxyzine Hcl 25 Mg Tab) 50 mg PO HSZ PRN PRN Reason: Insomnia Stop: 07/02/23 03:23 Hydroxyzine HCl (Hydroxyzine Hcl 25 Mg Tab) 25 mg PO Q4H PRN PRN Reason: Anxiety Stop: 07/02/23 03:23 Isosorbide Mononitrate (Isosorbide [place] Extended Rel 30 Mg Tabcr) 30 mg [facility] Stop: 07/02/23 13:29 Last Admin: 06/02/23 14:27 Dose: 30 mg Magnesium Hydroxide (Magnesium Hydroxide Susp 30 Ml Udc) 30 ml PO DAILY PRN PRN Reason: Constipation Stop: 07/02/23 03:23 Magnesium Oxide (Magnesium Oxide 400 Mg Tab) 400 mg PO QAM [facility] Stop: 07/02/23 13:29 Last Admin: 06/02/23 14:27 Dose: 400 mg Metformin HCl (Metformin Hcl 500 Mg Tab) 500 mg PO BIDM [facility] Stop: 07/02/23 17:44 Metoprolol Succinate (Metoprolol Succ 25mg Ext Rel Tab) 25 mg PO QAM [facility] Stop: 07/02/23 13:29 Last Admin: 06/02/23 14:28 Dose: 25 mg Nitroglycerin (Nitroglycerin Sl 0.4 Mg/Tab Tab) 0.4 mg SL Q5M PRN PRN Reason: Chest Pain Stop: 07/02/23 03:44 Olanzapine (Olanzapine 5 Mg Tablet) 5 mg PO HS [facility] Stop: 07/02/23 21:59 Ondansetron HCl (Ondansetron 4 Mg Od Tab) 4 mg PO DAILY [facility] Stop: 07/02/23 13:29 Last Admin: 06/02/23 14:25 Dose: 4 mg Sodium Chloride (Sodium Chloride 0.65% Na Soln 45 Ml (Caroline)) 1 - 2 sprays NA PRN PRN PRN Reason: Nasal Dryness/Congestion Stop: 07/02/23 03:23 Sucralfate (Sucralfate 1 Gm/10 Ml Udc) 1 gm PO ACHS [facility] Stop: 07/02/23 17:14 Tramadol HCl (Tramadol Hcl 50 Mg Tablet) 50 mg PO Q8 PRN PRN Reason: Pain Stop: 07/02/23 13:21
[2023-06-02] MEDS: DICLOFENAC SOD 1% GEL 100 GM TUBE EXT SCH ×2 (18:19→21:42)
[2023-06-02] MEDS: DULoxetine HCL 30 MG CAP PO SCH (18:20)
[2023-06-02] MEDS: busPIRone 5 MG TAB PO SCH (18:21)
[2023-06-02] MEDS: SUCRALFATE 1 GM/10 ML UDC PO SCH ×2 (18:21→21:35)
[2023-06-02] MEDS: metFORMIN HCL 500 MG TAB PO SCH (18:21)
[2023-06-02] MEDS ORDERED: ATORVASTATIN 40 MG TAB PO SCH (21:00)
[2023-06-02] MEDS: CELECOXIB 100 MG CAP PO SCH (21:43)
[2023-06-02] MEDS: OLANZapine 5 MG TABLET PO SCH (21:48)
[2023-06-02] MEDS ORDERED: AMITRIPTYLINE HCL 25 MG TAB PO SCH (22:00)
[2023-06-03] MEDS: ISOSORBIDE MONO EXTENDED REL 30 MG TABCR PO SCH (10:05)
[2023-06-03] MEDS: METOPROLOL SUCC 25MG EXT REL TAB PO SCH (10:05)
[2023-06-03] MEDS: ASPIRIN 81 MG ECTAB PO SCH (10:06)
[2023-06-03] MEDS: SUCRALFATE 1 GM/10 ML UDC PO SCH ×4 (10:06→21:18)
[2023-06-03] MEDS: ATORVASTATIN 40 MG TAB PO SCH (10:06)
[2023-06-03] MEDS: DICLOFENAC SOD 1% GEL 100 GM TUBE EXT SCH ×4 (10:07→21:16)
[2023-06-03] MEDS: CELECOXIB 100 MG CAP PO SCH ×2 (10:07→21:16)
[2023-06-03] MEDS: busPIRone 5 MG TAB PO SCH ×2 (10:07→17:42)
[2023-06-03] MEDS: GABAPENTIN 400 MG CAP PO SCH ×3 (10:08→21:17)
[2023-06-03] MEDS: DULoxetine HCL 60 MG CAP PO SCH (10:08)
[2023-06-03] MEDS: FAMOTIDINE 20 MG TAB PO SCH (10:08)
[2023-06-03] MEDS: ONDANSETRON 4 MG OD TAB PO SCH (10:09)
[2023-06-03] MEDS: MAGNESIUM OXIDE 400 MG TAB PO SCH (10:09)
[2023-06-03] MEDS: metFORMIN HCL 500 MG TAB PO SCH ×2 (10:09→17:44)
--- NOTE | 2023-06-03 15:30 | Psychiatric Progress Note ---
Date of Service June 03, 2023 Impression / Recommendations Impression 58 yo female with reported hx of bipolar II, recent saldana and SI, admit after concerned about her possible HI statements toward friend. will continue MNPR even though no HI current as significant fall risk/ambulates with walker 06/03/2023: although patient denies SI/HI today, she is unable to contract for safety outside of the hosptial and verbalizes very few coping skills. She would decompensate readily outside of the hospital at this time but is showing some decreasein anxious thoughts with med changes here. falls precautions (1) Bipolar 2 disorder: Plan 06/03/2023: continue current meds and tx plan. 06/02/2023: The patient was admitted to the [facility] ([facility]) on q15 min checks (behavioral with suicide precautions) for safety. The patient will participate in group, recreational, and milieu therapies and will be offered additional individual and family sessions as clinically appropriate. Risks/benefits/alternative reviewed re: current medications, agreed to shift Buspar dosing for better coverage and continue titration of Neurontin to address pain and anxiety. Overall, I spent a total of 27 minutes with this case, including direct evaluation of the patient, counseling the patient, coordination of care with nursing, and documentation in the electronic health record. Inventory Assets Strengths: sought treatment, aware of medication regimen Needs: improve coping skills, clarify intellectual level Suicide Risk Level Suicide Risk Level: Moderate (q15 min suicide checks) Risk Factors Assessment : Yes Do You Have Access To A Gun?: Yes Mental Health Diagnoses: Yes Substance Use Disorders: No Previous Attempt: Yes Previous Psychiatric Hospitalization: Yes Protective Factors Assessment Employed: No Supportive Family: Yes Interval History Identifying Information MEGAN HIGHTOWER is a 58-year-old F who currently lives in [facility], has a history of bipolar II disorder, and was admitted on 06/02/23 01:54 on a 201 voluntary commitment for mood lability and argument with friend. Chief Complaint "I'm real tired still. Thoughts are better though." Review of Systems Sleep Information Total Hours of Sleep: 6 Sleep Comments: Late admission overnight Meal Information Percent Meal Consumed - Breakfast: 100 Percent Meal Consumed - Lunch: 100 Percent Meal Consumed - Dinner: 100 Subjective Subjective Patient was seen & assessed and interval progress reviewed with nursing. Patient's am BP meds were held due to low BP. Patient had c/o to staff of dizziness but is currently asymptomatic. Still annoyed with friend but denies SI/HI, etc. Physical Exam Psychiatric Orientation: alert Apperance: appropriately dressed and appropriately groomed Eye Contact: + fair eye contact Motor Behavior: no abnormal motor movements Speech: normal rate/rhythm/volume of speech Affect: + constricted affect Mood: + anxious mood Thought Process: + concrete thought process Thought Content: reality based without delusions Suicidal Thoughts: denies suicidal thoughts Homicidal Thoughts: denies homicidal thoughts Hallucinations: no auditory hallucinations and no visual hallucinations Cognition: attention grossly intact and language grossly intact Estimated Intelligence: + below average estimated intelligence Insight: + limited insight Judgment: + limited judgement Vital Signs (Past 24 Hours) Last Vital Signs Temp 36.6 C 06/03/23 06:48 Pulse 81 06/03/23 06:49 Resp 16 06/03/23 06:48 BP 91/58 L 06/03/23 06:49 Pulse Ox 98 06/02/23 17:10 O2 Del Method Room Air 06/02/23 17:10 Results & Data ([facility]) Laboratory Results Laboratory Results - last 24 hr 06/02/23 06/02/23 06/03/23 17:20 21:30 08:40 POC Glucose 155 H 150 H 131 H Current Inpatient Medications Current Inpatient Medications: Current Inpatient Medications Acetaminophen (Acetaminophen 325 Mg Tab) 650 mg PO Q4H PRN PRN Reason: Headache or Minor Fever Stop: 07/02/23 03:23 Al Hydrox/Mg Hydrox/Simethicone (Aluminum/Magnesium Susp 30 Ml Udc) 30 ml PO Q4H PRN PRN Reason: GI Upset Stop: 07/02/23 03:23 Last Admin: 06/02/23 04:15 Dose: 30 ml Amitriptyline HCl (Amitriptyline Hcl 25 Mg Tab) 25 mg PO HS [facility] Stop: 07/02/23 03:49 Last Admin: 06/02/23 22:11 Dose: 25 mg Aspirin (Aspirin 81 Mg Ectab) 81 mg PO QAM [facility] Stop: 07/02/23 13:29 Last Admin: 06/03/23 10:06 Dose: 81 mg Atorvastatin Calcium (Atorvastatin 40 Mg Tab) 40 mg PO QAM [facility] Stop: 07/02/23 13:29 Last Admin: 06/03/23 10:06 Dose: 40 mg Buspirone HCl (Buspirone 5 Mg Tab) 20 mg PO BIDM [facility] Stop: 07/02/23 17:44 Last Admin: 06/03/23 10:07 Dose: 20 mg Celecoxib (Celecoxib 100 Mg Cap) 100 mg PO BID [facility] Stop: 07/02/23 20:59 Last Admin: 06/03/23 10:07 Dose: 100 mg Cyclobenzaprine HCl (Cyclobenzaprine Hcl 10 Mg Tab) 10 mg PO TID PRN PRN Reason: Muscle Spasm Stop: 07/02/23 13:59 Diclofenac Sodium (Diclofenac Sod 1% Gel 100 Gm Tube) 2 gm EXT QID [facility]; Protocol Stop: 07/02/23 16:59 Last Admin: 06/03/23 14:39 Dose: 2 gm Duloxetine HCl (Duloxetine Hcl 60 Mg Cap) 60 mg PO [facility] Stop: 07/02/23 13:29 Last Admin: 06/03/23 10:08 Dose: 60 mg Duloxetine HCl (Duloxetine Hcl 30 Mg Cap) 30 mg PO DAILYBD [facility] Stop: 07/02/23 17:14 Last Admin: 06/02/23 18:20 Dose: 30 mg Famotidine (Famotidine 20 Mg Tab) 20 mg PO [facility] Stop: 07/02/23 13:29 Last Admin: 06/03/23 10:08 Dose: 20 mg Gabapentin (Gabapentin 400 Mg Cap) 400 mg PO TID [facility] Stop: 07/02/23 13:59 Last Admin: 06/03/23 14:38 Dose: 400 mg Hydroxyzine HCl (Hydroxyzine Hcl 25 Mg Tab) 50 mg PO HSZ PRN PRN Reason: Insomnia Stop: 07/02/23 03:23 Hydroxyzine HCl (Hydroxyzine Hcl 25 Mg Tab) 25 mg PO Q4H PRN PRN Reason: Anxiety Stop: 07/02/23 03:23 Isosorbide Mononitrate (Isosorbide [place] Extended Rel 30 Mg Tabcr) 30 mg PO [facility] Stop: 07/02/23 13:29 Last Admin: 06/03/23 10:05 Dose: Not Given Magnesium Hydroxide (Magnesium Hydroxide Susp 30 Ml Udc) 30 ml PO DAILY PRN PRN Reason: Constipation Stop: 07/02/23 03:23 Magnesium Oxide (Magnesium Oxide 400 Mg Tab) 400 mg PO [facility] Stop: 07/02/23 13:29 Last Admin: 06/03/23 10:09 Dose: 400 mg Metformin HCl (Metformin Hcl 500 Mg Tab) 500 mg PO BIDM [facility] Stop: 07/02/23 17:44 Last Admin: 06/03/23 10:09 Dose: 500 mg Metoprolol Succinate (Metoprolol Succ 25mg Ext Rel Tab) 25 mg PO QAM [facility] Stop: 07/02/23 13:29 Last Admin: 06/03/23 10:05 Dose: Not Given Nitroglycerin (Nitroglycerin Sl 0.4 Mg/Tab Tab) 0.4 mg SL Q5M PRN PRN Reason: Chest Pain Stop: 07/02/23 03:44 Olanzapine (Olanzapine 5 Mg Tablet) 5 mg PO HS [facility] Stop: 07/02/23 21:59 Last Admin: 06/02/23 21:48 Dose: 5 mg Ondansetron HCl (Ondansetron 4 Mg Od Tab) 4 mg PO DAILY [facility] Stop: 07/02/23 13:29 Last Admin: 06/03/23 10:09 Dose: 4 mg Sodium Chloride (Sodium Chloride 0.65% Na Soln 45 Ml ([place])) 1 - 2 sprays NA PRN PRN PRN Reason: Nasal Dryness/Congestion Stop: 07/02/23 03:23 Sucralfate (Sucralfate 1 Gm/10 Ml Udc) 1 gm PO ACHS [facility] Stop: 07/02/23 17:14 Last Admin: 06/03/23 13:08 Dose: 1 gm Tramadol HCl (Tramadol Hcl 50 Mg Tablet) 50 mg PO Q8 PRN PRN Reason: Pain Stop: 07/02/23 13:21 Mental Health & Subst Abuse Tx Therapist Name of Therapist: Arelis Wood Getter Name of Wood Getter: None Post Discharge Appointments Primary Care Physician Name Of Family Doctor/PCP: [facility]
[2023-06-03] MEDS: DULoxetine HCL 30 MG CAP PO SCH (17:40)
[2023-06-03] MEDS: OLANZapine 5 MG TABLET PO SCH (21:18)
[2023-06-03] MEDS: AMITRIPTYLINE HCL 25 MG TAB PO SCH (21:19)
[2023-06-04] MEDS: SUCRALFATE 1 GM/10 ML UDC PO SCH ×4 (08:21→21:48)
[2023-06-04] MEDS: ASPIRIN 81 MG ECTAB PO SCH (08:21)
[2023-06-04] MEDS: ATORVASTATIN 40 MG TAB PO SCH (08:21)
[2023-06-04] MEDS: busPIRone 5 MG TAB PO SCH ×2 (08:22→17:35)
[2023-06-04] MEDS: CELECOXIB 100 MG CAP PO SCH ×2 (08:22→21:44)
[2023-06-04] MEDS: DICLOFENAC SOD 1% GEL 100 GM TUBE EXT SCH ×4 (08:23→21:45)
[2023-06-04] MEDS: DULoxetine HCL 60 MG CAP PO SCH (08:24)
[2023-06-04] MEDS: FAMOTIDINE 20 MG TAB PO SCH (08:24)
[2023-06-04] MEDS: MAGNESIUM OXIDE 400 MG TAB PO SCH (08:25)
[2023-06-04] MEDS: ISOSORBIDE MONO EXTENDED REL 30 MG TABCR PO SCH (08:25)
[2023-06-04] MEDS: metFORMIN HCL 500 MG TAB PO SCH ×2 (08:25→17:33)
[2023-06-04] MEDS: GABAPENTIN 400 MG CAP PO SCH (08:25)
[2023-06-04] MEDS: ONDANSETRON 4 MG OD TAB PO SCH (08:26)
[2023-06-04] MEDS: METOPROLOL SUCC 25MG EXT REL TAB PO SCH (08:26)
--- NOTE | 2023-06-04 13:54 | Psychiatric Progress Note ---
Date of Service June 04, 2023 Impression / Recommendations Impression 58 yo female with reported hx of bipolar II, recent saldana and SI, admit after concerned about her possible HI statements toward friend. will continue MNPR even though no HI current as significant fall risk/ambulates with walker 06/04/2023: improving (1) Bipolar 2 disorder: Plan 06/04/2023: hold 2 pm dose of Neurontin, resume 300 mg tonight and reassess for dosing tomorrow. 06/03/2023: continue current meds and tx plan. 06/02/2023: The patient was admitted to the [facility] ([facility] mental health unit) on q15 min checks (behavioral with suicide precautions) for safety. The patient will participate in group, recreational, and milieu therapies and will be offered additional individual and family sessions as clinically appropriate. Risks/benefits/alternative reviewed re: current medications, agreed to shift Buspar dosing for better coverage and continue titration of Neurontin to address pain and anxiety. Overall, I spent a total of 25 minutes with this case, including direct evaluation of the patient, counseling the patient, coordination of care with nursing, and treatment team. Inventory Assets Strengths: sought treatment, aware of medication regimen Needs: improve coping skills, clarify intellectual level Suicide Risk Level Suicide Risk Level: Moderate (q15 min suicide checks) Risk Factors Assessment : Yes Do You Have Access To A Gun?: Yes Mental Health Diagnoses: Yes Substance Use Disorders: No Previous Attempt: Yes Previous Psychiatric Hospitalization: Yes Protective Factors Assessment Employed: No Supportive Family: Yes Interval History Identifying Information MEGAN HIGHTOWER is a 58-year-old F who currently lives in [facility], has a history of bipolar II disorder, and was admitted on 06/02/23 01:54 on a 201 voluntary commitment for mood lability and argument with friend. Chief Complaint "I'm still tired but otherwise good." Review of Systems Sleep Information Total Hours of Sleep: 8 Meal Information Percent Meal Consumed - Breakfast: 50 Percent Meal Consumed - Lunch: 75 Percent Meal Consumed - Dinner: 100 Subjective Subjective Patient was seen & assessed and interval progress reviewed with treatment team. she does sleep through some groups, denies napping at home. Patient maintains takes meds consistently at home but one wonders if some could be forced med compliance as only minor dose change on Neurontin and using less prns that she reports taking at home. Regardless is ambulating well and calm. Denies upsetting or angry thoughts. Physical Exam Psychiatric Orientation: alert Apperance: appropriately dressed and appropriately groomed Eye Contact: + fair eye contact Motor Behavior: no abnormal motor movements Speech: normal rate/rhythm/volume of speech Affect: + constricted affect Mood: + anxious mood Thought Process: + concrete thought process Thought Content: reality based without delusions Suicidal Thoughts: denies suicidal thoughts Homicidal Thoughts: denies homicidal thoughts Hallucinations: no auditory hallucinations and no visual hallucinations Cognition: attention grossly intact and language grossly intact Estimated Intelligence: + below average estimated intelligence Insight: + limited insight Judgment: + limited judgement Vital Signs (Past 24 Hours) Last Vital Signs Temp 36.8 C 06/04/23 06:43 Pulse 98 H 06/04/23 06:43 Resp 16 06/04/23 06:43 BP 115/70 06/04/23 06:43 Pulse Ox 98 06/03/23 19:23 O2 Del Method Room Air 06/03/23 19:23 Results & Data ([facility]) Laboratory Results Laboratory Results - last 24 hr 06/03/23 06/04/23 17:16 08:15 POC Glucose 127 H 135 H Current Inpatient Medications Current Inpatient Medications: Current Inpatient Medications Acetaminophen (Acetaminophen 325 Mg Tab) 650 mg PO Q4H PRN PRN Reason: Headache or Minor Fever Stop: 07/02/23 03:23 Al Hydrox/Mg Hydrox/Simethicone (Aluminum/Magnesium Susp 30 Ml Udc) 30 ml PO Q4H PRN PRN Reason: GI Upset Stop: 07/02/23 03:23 Last Admin: 06/02/23 04:15 Dose: 30 ml Amitriptyline HCl (Amitriptyline Hcl 25 Mg Tab) 25 mg PO HS [facility] Stop: 07/02/23 03:49 Last Admin: 06/03/23 21:19 Dose: 25 mg Aspirin (Aspirin 81 Mg Ectab) 81 mg PO QAM [facility] Stop: 07/02/23 13:29 Last Admin: 06/04/23 08:21 Dose: 81 mg Atorvastatin Calcium (Atorvastatin 40 Mg Tab) 40 mg PO QAM [facility] Stop: 07/02/23 13:29 Last Admin: 06/04/23 08:21 Dose: 40 mg Buspirone HCl (Buspirone 5 Mg Tab) 20 mg PO BIDM [facility] Stop: 07/02/23 17:44 Last Admin: 06/04/23 08:22 Dose: 20 mg Celecoxib (Celecoxib 100 Mg Cap) 100 mg PO BID [facility] Stop: 07/02/23 20:59 Last Admin: 06/04/23 08:22 Dose: 100 mg Cyclobenzaprine HCl (Cyclobenzaprine Hcl 10 Mg Tab) 10 mg PO TID PRN PRN Reason: Muscle Spasm Stop: 07/02/23 13:59 Diclofenac Sodium (Diclofenac Sod 1% Gel 100 Gm Tube) 2 gm EXT QID [facility]; Protocol Stop: 07/02/23 16:59 Last Admin: 06/04/23 12:57 Dose: 2 gm Duloxetine HCl (Duloxetine Hcl 60 Mg Cap) [facility] Stop: 07/02/23 13:29 Last Admin: 06/04/23 08:24 Dose: 60 mg Duloxetine HCl (Duloxetine Hcl 30 Mg Cap) 30 mg PO DAILYBD [facility] Stop: 07/02/23 17:14 Last Admin: 06/03/23 17:40 Dose: 30 mg Famotidine (Famotidine 20 Mg Tab) [facility] Stop: 07/02/23 13:29 Last Admin: 06/04/23 08:24 Dose: 20 mg Gabapentin (Gabapentin 300 Mg Cap) 300 mg PO BID [facility] Stop: 07/04/23 20:59 Hydroxyzine HCl (Hydroxyzine Hcl 25 Mg Tab) 50 mg PO HSZ PRN PRN Reason: Insomnia Stop: 07/02/23 03:23 Hydroxyzine HCl (Hydroxyzine Hcl 25 Mg Tab) 25 mg PO Q4H PRN PRN Reason: Anxiety Stop: 07/02/23 03:23 Isosorbide Mononitrate (Isosorbide [place] Extended Rel 30 Mg Tabcr) [facility] Stop: 07/02/23 13:29 Last Admin: 06/04/23 08:25 Dose: 30 mg Magnesium Hydroxide (Magnesium Hydroxide Susp 30 Ml Udc) 30 ml PO DAILY PRN PRN Reason: Constipation Stop: 07/02/23 03:23 Magnesium Oxide (Magnesium Oxide 400 Mg Tab) 400 mg [facility] Stop: 07/02/23 13:29 Last Admin: 06/04/23 08:25 Dose: 400 mg Metformin HCl (Metformin Hcl 500 Mg Tab) [facility] Stop: 07/02/23 17:44 Last Admin: 06/04/23 08:25 Dose: 500 mg Metoprolol Succinate (Metoprolol Succ 25mg Ext Rel Tab) 25 mg PO QAM [facility] Stop: 07/02/23 13:29 Last Admin: 06/04/23 08:26 Dose: 25 mg Nitroglycerin (Nitroglycerin Sl 0.4 Mg/Tab Tab) 0.4 mg SL Q5M PRN PRN Reason: Chest Pain Stop: 07/02/23 03:44 Olanzapine (Olanzapine 5 Mg Tablet) 5 mg PO HS [facility] Stop: 07/02/23 21:59 Last Admin: 06/03/23 21:18 Dose: 5 mg Ondansetron HCl (Ondansetron 4 Mg Od Tab) 4 mg PO DAILY [facility] Stop: 07/02/23 13:29 Last Admin: 06/04/23 08:26 Dose: 4 mg Sodium Chloride (Sodium Chloride 0.65% Na Soln 45 Ml ([place])) 1 - 2 sprays NA PRN PRN PRN Reason: Nasal Dryness/Congestion Stop: 07/02/23 03:23 Sucralfate (Sucralfate 1 Gm/10 Ml Udc) 1 gm PO ACHS [facility] Stop: 07/02/23 17:14 Last Admin: 06/04/23 12:57 Dose: 1 gm Tramadol HCl (Tramadol Hcl 50 Mg Tablet) 50 mg PO Q8 PRN PRN Reason: Pain Stop: 07/02/23 13:21 Mental Health & Subst Abuse Tx Psychiatrist Name of Psychiatrist: Catalina Gutierrez - Dr. Persaud Psychiatrist's Date Of Appointment With Psychiatric Provider: 06/18/23 Time of Appointment with Psychiatrist: 10:20 AM Psychiatric Appointment Comment: [address] [place], [place] [address], [place] [address] Therapist Name of Therapist: Catalina Infante Therapist's Date of Therapist Appointment: 06/06/23 Time of Therapist Appointment: 11:15 AM Therapy Appointment Comment: Mobile Therapy Tray Casting Machine Operator Name of Tray Casting Machine Operator: Catalina Gutierrez Phone Number for Tray Casting Machine Operator: [phone] Case Management Appointment Comment: wind project manager will contact you directly to schedule next appt. Post Discharge Appointments Primary Care Physician Name Of Family Doctor/PCP: [facility] - Dr. Alexis Primary Care Date of Future Appointment with PCP: 07/17/23 Time of Appointment with PCP: 11:30 PM Provider Appointment Comment: [address] [place] [address], [place] [address] Contact Information Discharge Discharge Address: [facility] [place], [place] [address]
[2023-06-04] MEDS: DULoxetine HCL 30 MG CAP PO SCH (17:34)
[2023-06-04] MEDS: GABAPENTIN 300 MG CAP PO SCH (21:46)
[2023-06-04] MEDS: AMITRIPTYLINE HCL 25 MG TAB PO SCH (21:47)
[2023-06-04] MEDS: OLANZapine 5 MG TABLET PO SCH (21:48)
[2023-06-05] MEDS: ATORVASTATIN 40 MG TAB PO SCH (08:44)
[2023-06-05] MEDS: SUCRALFATE 1 GM/10 ML UDC PO SCH ×2 (08:44→12:17)
[2023-06-05] MEDS: ASPIRIN 81 MG ECTAB PO SCH (08:44)
[2023-06-05] MEDS: busPIRone 5 MG TAB PO SCH (08:45)
[2023-06-05] MEDS: CELECOXIB 100 MG CAP PO SCH (08:46)
[2023-06-05] MEDS: DICLOFENAC SOD 1% GEL 100 GM TUBE EXT SCH ×2 (08:47→13:18)
[2023-06-05] MEDS: DULoxetine HCL 60 MG CAP PO SCH (08:47)
[2023-06-05] MEDS: FAMOTIDINE 20 MG TAB PO SCH (08:48)
[2023-06-05] MEDS: GABAPENTIN 300 MG CAP PO SCH (08:48)
[2023-06-05] MEDS: metFORMIN HCL 500 MG TAB PO SCH (08:49)
[2023-06-05] MEDS: MAGNESIUM OXIDE 400 MG TAB PO SCH (08:49)
[2023-06-05] MEDS: ONDANSETRON 4 MG OD TAB PO SCH (08:50)
[2023-06-05] MEDS: METOPROLOL SUCC 25MG EXT REL TAB PO SCH (10:14)
[2023-06-05] MEDS: ISOSORBIDE MONO EXTENDED REL 30 MG TABCR PO SCH (10:15)
--- NOTE | 2023-06-05 13:44 | Discharge Summary ---
Date of Service June 05, 2023 History of Present Illness Patient states she was last hospitazlied last May in [place], "fall is like this." States she felt more "up and down" meaning depressed 5/7 days over the last 3 weeks, associated at times with aud saldana, non specific "mumbling," denies saldana are command in nature. States she wants to spend more time with her but does have neighbor and her 3 wiener dogs as support but "not enough" yesterday when she argued with her friend over the cable bill. Her friends cable bill is in the patient's name and she didn't pay it. Patient now says she will just turn the cable off if needs to. Has been dealing with some chronic pain from chest/upper extremity spasm, possibly CAD, and is s/p knee replacement with ongoing pain, appears to have some foot drop/walks with walker here. Physical Exam Psychiatric See admission H&P and DOD assessment. Vital Signs (Past 24 Hours) Last Vital Signs Temp 36.8 C 06/05/23 06:40 Pulse 90 06/05/23 10:10 Resp 16 06/05/23 06:40 BP 111/73 06/05/23 10:10 Pulse Ox 98 06/03/23 19:23 O2 Del Method Room Air 06/03/23 19:23 Principal Diagnosis bipolar II disorder Psychiatric Data See daily stay summary. In short, safety was maintained and the patient was cooperative with care. Medication changes included shifting pm dose of Buspar from bed time to evening meal and they tolerated this well. There was an attempt to titrate Neurontin but this was halted as she seemed somewhat sedated on 400 mg dose, seemed similar on 300 mg and patient confirmed this. It is suspected that she naps during day while is at work. She was very concrete in her interactions and decision making. She exhibited no evidence of kya, hypomania, hallucinations, panic, or impulse control issues during her stay and repeatedly denied SI/HI. Gait was steady with walker, seems that a shoe orthotic given shorter on leg where had knee replacement would decrease fall risk. Encouraged her to discuss with outpatient providers as we cannot consult podiatry here. A family session was held with the patient's and safety plan was completed prior to discharge that included supervision for her medications and securing weapons. After extensive evaluation and monitoring there is no evidence that she was truly homicidal toward her friend, the patient worries about her thoughts in the moment as very few coping skills and didn't want to act on them. She had no intent or plan or act of furtherance. Day of Discharge Assessment Today the patient voices readiness for discharge. They note improvement in mood and deny thoughts to harm self or others. Thoughts remain concrete but organized and they are improved from admission. There is no evidence of psychosis. They agree to take mediations as prescribed and keep follow-up appointments. They are stable for discharge to outpatient level of care. Transition of Care Transition Of Care Record: was reviewed with the patient Advance Directives Advance Directives Information Provided: Yes Advance Directives: No Mental Health Advance Directive: No Advance Directives on File: No Living Will: No Power of Motor Overhauler: No Advance Directives Reason:: Declines as Mental Health Visit. Suicide Risk Level Suicide Risk Level Comments: Suicide risk at discharge is deemed low as the patient is no longer requiring 24-hr monitoring, has a safety plan, and is free of suicidal ideation at discharge. Risk Factors Assessment : Yes Do You Have Access To A Gun?: Yes ( owns but was directed to secure, patient doesn't know how to access) Mental Health Diagnoses: Yes Substance Use Disorders: No Previous Attempt: Yes Previous Psychiatric Hospitalization: Yes Protective Factors Assessment Employed: No Supportive Family: Yes Tobacco Cessation at Discharge Tobacco Cessation Medication Prescribed at Discharge: Not Applicable/Non-Smoker Total Time Total Time Spent: Greater Than 30 Minutes (31 min) Total Time Includes: Examination of the patient, Discharge Planning and Medication Reconciliation Discharge Data Lab Results 06/01/23 06/01/23 06/01/23 14:50 14:50 14:50 WBC 7.58 RBC 4.25 Hgb 12.8 Hct 36.1 L MCV 84.9 MCH 30.1 MCHC 35.5 RDW Std Deviation 42.1 RDW Coeff of Maria De Jesus 13.6 Plt Count 310 MPV 9.8 Immature Gran % (Auto) 0.8 Neut % (Auto) 64.3 Lymph % (Auto) 25.2 Whiteside % (Auto) 6.2 Eos % (Auto) 2.8 Baso % (Auto) 0.7 Neut # (Auto) 4.88 Lymph # (Auto) 1.91 Whiteside # (Auto) 0.47 Eos # (Auto) 0.21 Baso # (Auto) 0.05 Immature Gran # (Auto) 0.06 Sodium 140 Potassium 3.6 Chloride 106 Carbon Dioxide 24 Anion Gap 10 BUN 10 Creatinine 0.80 Est Cr Clr Drug Dosing 72.1 Est GFR ( Amer) 93.5 Est GFR (Non-Af Amer) 80.7 BUN/Creatinine Ratio 12.5 Glucose 128 H POC Glucose Calcium 9.3 Total Bilirubin 0.6 AST 20 ALT 17 Alkaline Phosphatase 95 Total Protein 7.5 Albumin 4.2 Globulin 3.3 Albumin/Globulin Ratio 1.3 TSH 1.567 Urine Color Urine Appearance Urine pH Ur Specific [place] Urine Protein Urine Glucose (UA) Urine Ketones Urine Blood Urine Nitrite Urine Bilirubin Urine Urobilinogen Ur Leukocyte Esterase Urine WBC (Auto) Urine RBC (Auto) U Hyaline Cast (Auto) U Epithel Cells (Auto) Urine Bacteria (Auto) Salicylates Urine Opiates Screen Ur Methadone, Qual Acetaminophen Urine Barbiturates Ur Phencyclidine (PCP) U Amphetamin/Meth Scrn MDMA (Ecstasy) Screen U Benzodiazepines Scrn Ur Cocaine Metabolite U Marijuana (THC) Screen Ethyl Alcohol mg/dL SARS-CoV-2, RNA, NAAT 06/01/23 06/01/23 06/01/23 14:50 14:50 15:06 WBC RBC Hgb Hct MCV MCH MCHC RDW Std Deviation RDW Coeff of Maria De Jesus Plt Count MPV Immature Gran % (Auto) Neut % (Auto) Lymph % (Auto) [place]ites[place] % (Auto) Eos % (Auto) Baso % (Auto) Neut # (Auto) Lymph # (Auto) [place] # (Auto) Eos # (Auto) Baso # (Auto) Immature Gran # (Auto) Sodium Potassium Chloride Carbon Dioxide Anion Gap BUN Creatinine Est Cr Clr Drug Dosing Est GFR ( Amer) Est GFR (Non-Af Amer) BUN/Creatinine Ratio Glucose POC Glucose Calcium Total Bilirubin AST ALT Alkaline Phosphatase Total Protein Albumin Globulin Albumin/Globulin Ratio TSH Urine Color Urine Appearance Urine pH Ur Specific [place] Urine Protein Urine Glucose (UA) Urine Ketones Urine Blood Urine Nitrite Urine Bilirubin Urine Urobilinogen Ur Leukocyte Esterase Urine WBC (Auto) Urine RBC (Auto) U Hyaline Cast (Auto) U Epithel Cells (Auto) Urine Bacteria (Auto) Salicylates < 3.0 L Urine Opiates Screen Ur Methadone, Qual Acetaminophen < 3 L Urine Barbiturates Ur Phencyclidine (PCP) U Amphetamin/Meth Scrn MDMA (Ecstasy) Screen U Benzodiazepines Scrn Ur Cocaine Metabolite U Marijuana (THC) Screen Ethyl Alcohol mg/dL < 10.0 SARS-CoV-2, RNA, NAAT NEGATIVE 06/01/23 06/01/23 06/02/23 16:30 16:30 13:00 WBC RBC Hgb Hct MCV MCH MCHC RDW Std Deviation RDW Coeff of Maria De Jesus Plt Count MPV Immature Gran % (Auto) Neut % (Auto) Lymph % (Auto) [place] % (Auto) Eos % (Auto) Baso % (Auto) Neut # (Auto) Lymph # (Auto) [place] # (Auto) Eos # (Auto) Baso # (Auto) Immature Gran # (Auto) Sodium Potassium Chloride Carbon Dioxide Anion Gap BUN Creatinine Est Cr Clr Drug Dosing Est GFR ( Amer) Est GFR (Non-Af Amer) BUN/Creatinine Ratio Glucose POC Glucose 93 Calcium Total Bilirubin AST ALT Alkaline Phosphatase Total Protein Albumin Globulin Albumin/Globulin Ratio TSH Urine Color Yellow Urine Appearance Clear Urine pH 5.5 Ur Specific [place] 1.016 Urine Protein Negative Urine Glucose (UA) Negative Urine Ketones Negative Urine Blood Trace H Urine Nitrite Negative Urine Bilirubin Negative Urine Urobilinogen Negative Ur Leukocyte Esterase 1+ H Urine WBC (Auto) 5-10 H Urine RBC (Auto) 0-4 U Hyaline Cast (Auto) Not Reportable U Epithel Cells (Auto) 5-10 H Urine Bacteria (Auto) Negative Salicylates Urine Opiates Screen Neg Ur Methadone, Qual Neg Acetaminophen Urine Barbiturates Neg Ur Phencyclidine (PCP) Neg U Amphetamin/Meth Scrn Neg MDMA (Ecstasy) Screen Neg U Benzodiazepines Scrn Neg Ur Cocaine Metabolite Neg U Marijuana (THC) Screen Neg Ethyl Alcohol mg/dL SARS-CoV-2, RNA, NAAT 06/02/23 06/02/23 06/03/23 17:20 21:30 08:40 WBC RBC Hgb Hct MCV MCH MCHC RDW Std Deviation RDW Coeff of Maria De Jesus Plt Count MPV Immature Gran % (Auto) Neut % (Auto) Lymph % (Auto) [place] % (Auto) Eos % (Auto) Baso % (Auto) Neut # (Auto) Lymph # (Auto) [place] # (Auto) Eos # (Auto) Baso # (Auto) Immature Gran # (Auto) Sodium Potassium Chloride Carbon Dioxide Anion Gap BUN Creatinine Est Cr Clr Drug Dosing Est GFR ( Amer) Est GFR (Non-Af Amer) BUN/Creatinine Ratio Glucose POC Glucose 155 H 150 H 131 H Calcium Total Bilirubin AST ALT Alkaline Phosphatase Total Protein Albumin Globulin Albumin/Globulin Ratio TSH Urine Color Urine Appearance Urine pH Ur Specific [place] Urine Protein Urine Glucose (UA) Urine Ketones Urine Blood Urine Nitrite Urine Bilirubin Urine Urobilinogen Ur Leukocyte Esterase Urine WBC (Auto) Urine RBC (Auto) U Hyaline Cast (Auto) U Epithel Cells (Auto) Urine Bacteria (Auto) Salicylates Urine Opiates Screen Ur Methadone, Qual Acetaminophen Urine Barbiturates Ur Phencyclidine (PCP) U Amphetamin/Meth Scrn MDMA (Ecstasy) Screen U Benzodiazepines Scrn Ur Cocaine Metabolite U Marijuana (THC) Screen Ethyl Alcohol mg/dL SARS-CoV-2, RNA, NAAT 06/03/23 06/04/23 06/04/23 17:16 08:15 16:50 WBC RBC Hgb Hct MCV MCH MCHC RDW Std Deviation RDW Coeff of Maria De Jesus Plt Count MPV Immature Gran % (Auto) Neut % (Auto) Lymph % (Auto) [place] % (Auto) Eos % (Auto) Baso % (Auto) Neut # (Auto) Lymph # (Auto) [place] # (Auto) Eos # (Auto) Baso # (Auto) Immature Gran # (Auto) Sodium Potassium Chloride Carbon Dioxide Anion Gap BUN Creatinine Est Cr Clr Drug Dosing Est GFR ( Amer) Est GFR (Non-Af Amer) BUN/Creatinine Ratio Glucose POC Glucose 127 H 135 H 114 H Calcium Total Bilirubin AST ALT Alkaline Phosphatase Total Protein Albumin Globulin Albumin/Globulin Ratio TSH Urine Color Urine Appearance Urine pH Ur Specific [place] Urine Protein Urine Glucose (UA) Urine Ketones Urine Blood Urine Nitrite Urine Bilirubin Urine Urobilinogen Ur Leukocyte Esterase Urine WBC (Auto) Urine RBC (Auto) U Hyaline Cast (Auto) U Epithel Cells (Auto) Urine Bacteria (Auto) Salicylates Urine Opiates Screen Ur Methadone, Qual Acetaminophen Urine Barbiturates Ur Phencyclidine (PCP) U Amphetamin/Meth Scrn MDMA (Ecstasy) Screen U Benzodiazepines Scrn Ur Cocaine Metabolite U Marijuana (THC) Screen Ethyl Alcohol mg/dL SARS-CoV-2, RNA, NAAT 06/05/23 08:30 WBC RBC Hgb Hct MCV MCH MCHC RDW Std Deviation RDW Coeff of Maria De Jesus Plt Count MPV Immature Gran % (Auto) Neut % (Auto) Lymph % (Auto) [place] % (Auto) Eos % (Auto) Baso % (Auto) Neut # (Auto) Lymph # (Auto) [place] # (Auto) Eos # (Auto) Baso # (Auto) Immature Gran # (Auto) Sodium Potassium Chloride Carbon Dioxide Anion Gap BUN Creatinine Est Cr Clr Drug Dosing Est GFR ( Amer) Est GFR (Non-Af Amer) BUN/Creatinine Ratio Glucose POC Glucose 136 H Calcium Total Bilirubin AST ALT Alkaline Phosphatase Total Protein Albumin Globulin Albumin/Globulin Ratio TSH Urine Color Urine Appearance Urine pH Ur Specific [place] Urine Protein Urine Glucose (UA) Urine Ketones Urine Blood Urine Nitrite Urine Bilirubin Urine Urobilinogen Ur Leukocyte Esterase Urine WBC (Auto) Urine RBC (Auto) U Hyaline Cast (Auto) U Epithel Cells (Auto) Urine Bacteria (Auto) Salicylates Urine Opiates Screen Ur Methadone, Qual Acetaminophen Urine Barbiturates Ur Phencyclidine (PCP) U Amphetamin/Meth Scrn MDMA (Ecstasy) Screen U Benzodiazepines Scrn Ur Cocaine Metabolite U Marijuana (THC) Screen Ethyl Alcohol mg/dL SARS-CoV-2, RNA, NAAT Hospital Course (1) Bipolar 2 disorder: Plan 06/04/2023: hold 2 pm dose of Neurontin, resume 300 mg tonight and reassess for dosing tomorrow. 06/03/2023: continue current meds and tx plan. 06/02/2023: The patient was admitted to the [facility] ([facility] mental health unit) on q15 min checks (behavioral with suicide precautions) for safety. The patient will participate in group, recreational, and milieu therapies and will be offered additional individual and family sessions as clinically appropriate. Risks/benefits/alternative reviewed re: current medications, agreed to shift Buspar dosing for better coverage and continue titration of Neurontin to address pain and anxiety. Overall, I spent a total of 25 minutes with this case, including direct evaluation of the patient, counseling the patient, coordination of care with nursing, and treatment team. Mental Health & Subst Abuse Tx Psychiatrist Name of Psychiatrist: Catalina Gutierrez - Dr. Persaud Psychiatrist's Date Of Appointment With Psychiatric Provider: 06/18/23 Time of Appointment with Psychiatrist: 10:20 AM Psychiatric Appointment Comment: [address] [place] [address] [place] [address] Therapist Name of Therapist: Malloriemaryann Matt Tubbs Arelis Therapist's Date of Therapist Appointment: 06/06/23 Time of Therapist Appointment: 11:15 AM Therapy Appointment Comment: Mobile Therapy Olive Knocker Name of Olive Knocker: Catalina Gutierrez Phone Number for Olive Knocker: [phone] Case Management Appointment Comment: golf manager will contact you directly to schedule next appt. Post Discharge Appointments Primary Care Physician Name Of Family Doctor/PCP: [facility] - Dr. Alexis Primary Care Date of Future Appointment with PCP: 07/17/23 Time of Appointment with PCP: 11:30 PM Provider Appointment Comment: [address] [place] [id number] Smoking Cessation Counseling Tobacco Cessation Medication Prescribed at Discharge: Not Applicable/Non-Smoker Contact Information Discharge Discharge Address: [facility] [place] [address] Discharge Plan Discharge Items Patient Disposition: Home - Self-Care Reason For Visit: BIPOLAR DISORDER Discharge Diagnosis: bipolar II disorder Activity: Resume your previous activity Non-emergency contact: Primary Care Provider, Psychiatrist, Therapist and Snuff Grinder Call non-emergency contact if: you have any medication questions and your symptoms worsen Follow-up/Referrals: PCP,NO [Primary Care Provider] - Diet: Regular Addtl Attending Provider Instructions: SPECIAL CARE INSTRUCTIONS: 1. Follow through with your scheduled aftercare appointments. If unable to keep an appointment, please call to reschedule. 2. Take your medication only as prescribed. Medication should not be changed or stopped without the approval of your doctor. In the event of worsening symptoms or concerns about side effects, contact your doctor immediately. 3. Utilize new healthy coping skills, anger management skills, and stress management skills learned during your hospitalization. Journal feelings and process them with a support person. Identify stressors or situations that may result in relapse, deterioration or inappropriate behaviors and develop a plan to deal with those issues. 4. If your coping skills are ineffective and you are in crisis, contact your outpatient providers for direction. If unable to reach your providers, please call the [facility] CRISIS LINE AT , go to the [facility] walk-in center at [address], [address], [place], or go to the closest Emergency Room. 5. Avoid alcohol and un-prescribed drugs. 6. You have been provided with the Mental Health Advance Directives Pamphlet for your review. 7. Your condition is stable for discharge to outpatient level of care, but recovery is an ongoing process. Ifthoughts to harm yourself or others return, follow the safety plan developed during your stay. Planning for a safe return home includes securing weapons. Our treatment team recommends weaponsbe removed from the home until your outpatient provider reassesses your progress. In rare cases where the items themselvescannot be removed, guns and ammunitionshould be secured separatelyand keys stored by a reliable personoutside of the home. If you were admitted on an involuntary commitment, the police or other legal authorities may be involved in this process. AFTERCARE APPOINTMENTS: * Please call your insurance company prior to your scheduled appointment to confirm your aftercare providers are covered. Take your insurance information to your appointments. WHO TO CALL AND WHEN: Medical Emergencies: For questions or emergencies related to your hospital stay, please contact the Inpatient Behavioral Health Unit at [phone]. A die welder is on-call 16/04 for the Behavioral Health Unit for emergencies At any time you feel your situation is an emergency, you may also call 911 immediately. Pending Studies at Discharge: No Stand-Alone Forms: [facility], Smoking Cessation Medications and DC Order Prescriptions: Continued sucralfate [Carafate] 100 mg/mL suspension 10 ml PO QID Rx Instructions: swish in mouth and swallow; use after food/drink mecobalamin (vitamin B12) [B12 Active] 1,000 mcg tablet,chewable 2,000 mcg PO QAM loperamide [Imodium A-D] 2 mg tablet 2 mg PO Q6H PRN (Reason: Diarrhea) isosorbide mononitrate 30 mg tablet extended release 24 hr 30 mg PO QAM cyclobenzaprine 10 mg tablet 10 mg PO TID PRN (Reason: Spasms) metoprolol succinate [Toprol XL] 25 mg tablet extended release 24 hr 25 mg PO QAM diclofenac sodium [Arthritis Pain (diclofenac)] 1 % gel 2 g topical QID PRN (Reason: Pain) Rx Instructions: apply to single elbow, wrist or hand; for hand includes palm/fingers/back of hand nitroglycerin [Nitrostat] 0.4 mg tablet, sublingual 0.4 mg sublingual Q5M PRN (Reason: cp) Rx Instructions: do not exceed 3 doses per episode albuterol sulfate 90 mcg/actuation HFA aerosol inhaler 1 puff inhalation Q4 PRN (Reason: Wheezing) Combivent Respimat 20-100 mcg/actuation mist 1 puff inhalation QID PRN (Reason: sob) Rx Instructions: space evenly during waking hours duloxetine [Cymbalta] 30 mg capsule,delayed release(DR/EC) 30 mg PO DAILY Patient Comments: currently on hold d/t stomach problems famotidine [Pepcid] 20 mg tablet 20 mg PO DAILY Patient Comments: currently on hold d/t stomach problems hydroxyzine HCl 25 mg tablet 25 mg PO UD PRN (Reason: Anxiety) gabapentin [Neurontin] 100 mg capsule 300 mg PO TID potassium chloride [Klor-Con M10] 10 mEq tablet,ER particles/crystals 10 meq PO QAM magnesium oxide [MagOx] 400 mg (241.3 mg magnesium) tablet 400 mg PO DAILY metformin 500 mg tablet 500 mg PO BID Patient Comments: currently on hold d/t stomach problems duloxetine [Cymbalta] 60 mg capsule,delayed release(DR/EC) 60 mg PO DAILY olanzapine [Zyprexa] 5 mg tablet 5 mg PO DAILY atorvastatin [Lipitor] 40 mg Tablet 40 mg PO HS Patient Comments: currently hold d/t stomach problems aspirin [Aspir-81] 81 mg Tablet,Delayed Release (Dr/Ec) 81 mg PO QAM pantoprazole [Protonix] 40 mg Tablet,Delayed Release (Dr/Ec) 40 mg PO BID ondansetron HCl 4 mg tablet 4 mg PO DAILY acetaminophen-codeine 300-60 mg tablet 300 tab PO Q6H celecoxib 100 mg capsule 100 mg PO BID amitriptyline 25 mg tablet 25 mg HS Changed buspirone 10 mg tablet 20 mg PO BIDM Qty: 1 0RF Discharge Orders: Discharge Order (Routine); Ordered 06/05/23 Ordered By: Jeana Larson Admission Data Admit Date/Time: 06/02/23 01:54 Attending Provider: Jeana Larson Admit Provider: Jeana Larson Primary Care Provider: PCP,NO Coding Level of Care Code 82359 D/C day mgmt > 30 min Diagnoses Bipolar 2 disorder F31.81
== END 2023-06-05 14:50 | disposition home or self-care (01) | DRG 885 ==
LOC: ED 14:05 → 3S 06-02 01:54 → ED 06-02 02:07